=== PATIENT | female | born 1960 | race African-American/Black ===

== ENCOUNTER 2019-05-01 08:10 | Emergency (ER) | payer OTHER ==
[~2019-05-01] VITALS: Ht 154.9 cm; Wt 75.0 kg
[2019-05-01 08:56] VITALS: BP 119/78
[2019-05-01] MEDS ORDERED: KETOROLAC 60MG/2ML VIAL IM ONE (09:00)
== END 2019-05-01 09:40 | disposition home or self-care (01) ==
LOC: ER 08:10
DX: M25.552 Pain in left hip (principal)
CPT/HCPCS: 96372; 99283; J1885